=== PATIENT | female | born 1970 | race Caucasian/White ===

== ENCOUNTER → 2019-07-01 | Day surgery (SDC) | payer OTHER ==
[2019-06-29 13:24] VITALS: BMI 31.5
[~2019-07-01] MED LIST: LACTATED RINGERS 1,000 ML IV SCH; LIDOCAINE 1% (10MG/ML) FOR IV START INTRADERMA PRN; LIDOCAINE 1% INJ 10MG/ML (20 ML MDV) ONE; PROPOFOL 10 MG/ML 20 ML VIAL IV ONE
[2019-07-01 10:05] VITALS: RESP 16; TEMP 96.7
--- NOTE | 2019-07-01 10:53 | P.PCN ---
Date of Procedure: 07/01/19 Procedure(s) Performed: BRIEF HISTORY: Patient is a 48-year-old pleasant female scheduled for an elective colonoscopy as a part of screening for colon rectal neoplasia. PROCEDURE PERFORMED: Colonoscopy. PREOPERATIVE DIAGNOSIS: Screening for colon cancer. IV sedation per Anesthesia. PROCEDURE: After informed consent was obtained, the patient, was brought into the endoscopy unit. IV sedation was administered by Anesthesia under continuous monitoring. Digital rectal examination was normal. Initially the Olympus CF-160 flexible video colonoscope was then inserted in the rectum, gradually advanced into the cecum without any difficulty. Careful examination was performed as the scope was gradually being withdrawn. Ileocecal valve and the appendiceal orifice were visualized and appeared normal. Prep was excellent. Mucosa of the cecum, ascending colon, transverse colon, descending colon, sigmoid colon, and rectum appeared normal. Retroflexion was performed in the rectum and no lesions were seen. The patient tolerated the procedure well. IMPRESSION: Normal-appearing colon from rectum to cecum with no evidence of colorectal neoplasia . RECOMMENDATIONS: Findings of this examination were discussed with the patient as well as a family. She was advised to have a repeat screening colonoscopy in 10 years.
[2019-07-01 11:16] VITALS: BP 125/88; PULSE 65
== END ==
LOC: ORWHC2ENDO 09:04
PROVIDERS: ATTEND Internal Medicine Gastroenterology
DX: Z12.11 Encounter for screening for malignant neoplasm of colon (principal); E07.9 Disorder of thyroid, unspecified; F17.210 Nicotine dependence, cigarettes, uncomplicated; M19.90 Unspecified osteoarthritis, unspecified site; Z79.1 Long term (current) use of non-steroidal anti-inflammatories (NSAID); Z79.890 Hormone replacement therapy; Z79.899 Other long term (current) drug therapy
CPT/HCPCS: J2001; J2704; G0121

== ENCOUNTER → 2023-10-11 | Outpatient (CLI) | payer BC ==
[2023-10-11 19:30] LABS: Basophils # (A) 0.04 X 10*3/uL (0.00-0.10); Basophils % (A) 0.7 %; Eosinophils % (A) 3.3 %; HCT 40.7 % (37.2-46.3); HGB 13.4 g/dL (12.0-15.0); Lymphocytes # (A) 1.44 X 10*3/uL (0.90-5.00); Lymphocytes % (A) 23.8 %; MCH 29.1 pg (27.0-32.0); MCHC 32.9 g/dL (32.0-37.0); MCV 88.3 FL (80.0-97.0); Mean Platelet Volume 10.2 FL (9.5-12.2); Monocytes # (A) 0.38 X 10*3/uL (0.20-1.00); Monocytes % (A) 6.3 %; NRBC Per 100 WBC 0 X 10*3/uL (0.00-0.01); Neutrophils # (A) 3.98 X 10*3/uL (1.80-7.70); Neutrophils % (A) 65.7 %; Platelet Count 286 X 10*3/uL (140-440); RBC 4.61 X 10*6/uL (4.10-5.20); RDW 13.8 % (11.5-14.5); WBC 6.05 X 10*3/uL (4.50-10.00)
[2023-10-11 19:42] LABS: INR 0.98 sec (0.93-1.11); Prothrombin Time 10.6 sec (9.9-11.9)
== END | disposition home or self-care (01) ==
LOC: LABPAT 13:19
PROVIDERS: ATTEND Orthopaedic Surgery
DX: Z01.818 Encounter for other preprocedural examination (principal); M17.12 Unilateral primary osteoarthritis, left knee; Z22.322 Carrier or suspected carrier of Methicillin resistant Staphylococcus aureus
CPT/HCPCS: 80048; 85025; 85610; 86850; 86900; 86901; 87070; 93005

== ENCOUNTER 2023-10-21 05:34 | Day surgery (SDC) | payer BC, OTHER ==
[~2023-10-21 05:34] MED LIST changes: -LACTATED RINGERS 1,000 ML IV SCH; -LIDOCAINE 1% (10MG/ML) FOR IV START INTRADERMA PRN; -LIDOCAINE 1% INJ 10MG/ML (20 ML MDV) ONE; -PROPOFOL 10 MG/ML 20 ML VIAL IV ONE; +TRANEXAMIC 1,000 MG/100ML-NACL 1,000 MG in SALINE 1 100ML.BAG IVPB PRN
[2023-10-21] MEDS ORDERED: LIDOCAINE 1% (10MG/ML) FOR IV START INTRADERMA PRN (05:37)
[2023-10-21] MEDS ORDERED: droPERidol 5 MG/2 ML VIAL IVP ONE (05:37)
[2023-10-21] MEDS: LACTATED RINGERS 1,000 ML IV SCH (06:19)
[2023-10-21] MEDS: MELOXICAM 7.5 MG TAB PO PRN (06:20)
[2023-10-21] MEDS: ACETAMINOPHEN TAB 500 MG TAB PO PRN (06:20)
[2023-10-21] MEDS: DEXAMETHASONE SOD PHOSPHATE 4 MG/ML 1 ML VIAL IV ONE (06:22)
[2023-10-21] MEDS: ONDANSETRON 4 MG/2 ML VIAL IVP ONE (06:22)
[2023-10-21] MEDS: LACTATED RINGERS 1,000 ML IV ONE ×2 (06:24→09:08)
--- NOTE | 2023-10-21 06:37 | HP ---
HISTORY AND PHYSICAL ANTICIPATED DATE OF SURGERY: 10/21/2023. HISTORY OF PRESENT ILLNESS: Nadia Silver is a 53-year-old patient, seen with symptomatic left hip osteoarthritis. We discussed options regarding treatment. She elected to proceed with direct anterior left total hip arthroplasty. Consent was obtained. PAST MEDICAL HISTORY: Hypothyroidism. PAST SURGICAL HISTORY: Appendectomy. DAILY MEDICATIONS: 1. Aleve. 2. Celexa. 3. Levothyroxine. 4. Tylenol. ALLERGIES: None. SOCIAL HISTORY: She denies tobacco use. PHYSICAL EVALUATION OF LEFT HIP: She has limited range of motion with severe pain. Positive hip impingement sign. Straight-leg raise negative. Her distal neurovascular exam is intact. IMAGING DATA: Left hip radiographs reveal severe osteoarthritic changes. IMPRESSION: 1. Left hip osteoarthritis. 2. Hypothyroidism. PLAN: Direct anterior approach left total hip arthroplasty. MMROMAIN / SAFIAN: [id number] /
[2023-10-21] MEDS: MIDAZOLAM 2 MG/2 ML VIAL IVP ONE (06:45)
[2023-10-21 07:16] LABS: African American GFR (CKD) >90 (>60 ml/min/1.73 sqM); Anion Gap 5 mmol/L; Blood Urea Nitrogen 10 mg/dL (7-17); Calcium 8.9 mg/dL (8.4-10.2); Carbon Dioxide 25 mmol/L (22-30); Chloride 110 mmol/L (98-107); Glucose 107 mg/dL (74-99); Non-African American GFR(CKD) >90 (>60 ml/min/1.73 sqM); Potassium 4.1 mmol/L (3.5-5.1); Sodium 140 mmol/L (137-145)
[2023-10-21] MEDS ORDERED: ROPIVACAINE 5 MG/ML 30 ML VIAL ONE (07:23)
[2023-10-21] MEDS ORDERED: MIDAZOLAM 2 MG/2 ML VIAL ONE (07:23)
[2023-10-21] MEDS ORDERED: TRANEXAMIC 1,000 MG/100ML-NACL PREMIX BAG ONE (07:23)
[2023-10-21] MEDS ORDERED: LIDOCAINE 1% INJ 10MG/ML (20 ML MDV) ONE (07:23)
[2023-10-21] MEDS ORDERED: GLYCOPYRROLATE 0.2 MG/ML 2 ML VIAL ONE (07:23)
[2023-10-21] MEDS ORDERED: ROCURONIUM 10 MG/ML (5 ML VIAL) IV ONE (07:23)
[2023-10-21] MEDS ORDERED: SUCCINYLCHOLINE CHLORIDE 200 MG/10 ML VIAL IV ONE (07:23)
[2023-10-21] MEDS ORDERED: PROPOFOL 10 MG/ML 20 ML VIAL IV ONE (07:23)
[2023-10-21] MEDS ORDERED: HYDROmorphone (PF) 1 MG/ML ONE (07:23)
[2023-10-21] MEDS ORDERED: fentaNYL (PF) 50 MCG/ML 2 ML AMP ONE (07:23)
[2023-10-21] MEDS ORDERED: DEXAMETHASONE SOD PHOSPHATE 4 MG/ML 1 ML VIAL ONE (07:23)
[2023-10-21] MEDS ORDERED: NEOSTIGMINE 1 MG/ML 10 ML VIAL ONE (07:23)
[2023-10-21] MEDS: ceFAZolin 1,000 MG in SODIUM CHLORIDE 0.9% 1,000 ML IRRIGATION ONE (07:58)
[2023-10-21] MEDS ORDERED: NALOXONE 0.4 MG/ML 1 ML VIAL IV PRN (09:08)
[2023-10-21] MEDS ORDERED: LACTATED RINGERS 1,000 ML IV ONE (09:08)
[2023-10-21] MEDS ORDERED: HYDROmorphone 0.5 MG/0.5 ML SYRINGE IVP PRN ×2 (09:08)
[2023-10-21] MEDS ORDERED: HYDROmorphone 1 MG/ML 1 ML SYRINGE IVP PRN (09:08)
[2023-10-21] MEDS ORDERED: HYDROcodone/APAP 5-325MG 1 EACH TAB PO PRN (09:08)
--- NOTE | 2023-10-21 09:08 | P.OP ---
Date of Procedure: 10/21/23 Preoperative Diagnosis: Left hip osteoarthritis Postoperative Diagnosis: Left hip osteoarthritis Procedure(s) Performed: Direct anterior left total hip arthroplasty Implants: 1. DePuy [place] 135 degree standard collared size 11 press-fit femoral stem 2. De[employer]uy [place] 56 mm press-fit acetabular shell 3. De[employer]uy [place] neutral polyethylene acetabular liner 36 mm ID 56 mm OD 4. Biolox delta ceramic femoral head +1.5 36 mm Anesthesia: GETA, regional (Erector spinae block) Surgeon: Ritesh Gamez Saturator #1: Abdulaziz Roe Estimated Blood Loss (ml): 40 Pathology: none sent Condition: stable Disposition: PACU Indications for Procedure: 53-year-old patient seen with symptomatic left hip osteoarthritis. After having treatment options discussed, she elected to proceed with direct anterior left total hip arthroplasty. Operative Findings: See description of procedure Description of Procedure: The patient was taken to the operative suite. Patient underwent a general anesthetic by the department of anesthesia. Patient was then transferred to the [place] table. Patient was given preoperative IV antibiotics and TXA. Both lower extremities were placed in standard leg spars. The hip was then prepped and draped in the normal sterile orthopedic fashion. A standard anterior incision was made beginning 3 cm lateral and 1 cm distal to the ASIS extending 10 cm. Dissection was then carried down through the subcutaneous soft tissues down to the fascia overlying the tensor fascia salazar. An incision was now made through the fascia. Careful dissection was taken down exposing the tensor fascia salazar muscle. A Cobra retractor was now placed along the medial femoral neck and a second one along the lateral femoral neck. The venous circumflex vessels were now identified, cauterized and clipped. We identified the anterior hip capsule. An incision was made through the hip capsule along the lateral border. I performed a partial anterior capsulectomy. Retractors were now placed around the femoral neck itself. A femoral neck cut was now made with a sagittal saw. It was completed with an osteotome at the lateral neck area. The femoral head was now removed without difficulty. The extremity was now rotated to 60 of external rotation. It was locked in position. Residual labrum was now debrided out. Serial reaming was performed of the acetabulum while Abdulaziz LACEY assisted holding an anterior retractor for exposure. Once we reached the appropriate size and a trial was position and fit nicely. The appropriate size was now chosen opened and made available. It was introduced into the acetabulum without difficulty. The C-arm/fluoroscopy was now brought into the operative field. We made sure we had a true AP pelvic view. We now under direct C- arm/fluoroscopy introduced into the acetabular component with appropriate version and inclination. I held the cup in appropriate position while Abdulaziz LACEY used a mallet to seat the acetabular component. I noted the component now to be well seated and stable. Acetabular cup introduce her was removed. The C-arm was pulled back. An appropriate liner was introduced and clicked into position. It was felt to be stable. At this point retractors were removed. The extremity was now placed into 140 external rotation with no traction. The leg was now dropped to the ground and adducted. Appropriate retractors were now positioned along the proximal femur. We also placed our femoral look into position. Additional capsular releasing was performed to gain access to the proximal femur. We now used a box osteotome. A canal finder was now utilized. Serial broaching was now performed with the assistance of Abdulaziz LACEY tapping the broaches down with a mallet while held the broach in appropriate rotation and position. This was done until we reached the appropriate size with good overall rotational stability. Appropriate calcar planing was performed. A trial head/neck was placed into position. The hip was now reduced. The C- arm/fluoroscopy was brought back into the operative field. I obtained an AP pelvis was demonstrated adequate leg length alignment. The trial components appeared adequately sized and positioned the C-arm/fluoroscopy was pulled back. Retractors were repositioned and the hip was dislocated. The leg was again taken down to the ground and adducted. Appropriate retractors were repositioned as well as the femoral hook. All trial components were removed. The femoral implant was opened along with the femoral head. The femoral implant was intro duced on the appropriate handle into our pre-broached area. I held the component position while Abdulaziz LACEY used a mallet to seat the femoral component. The femoral component was now noted to be well seated and stable.. The femoral head was introduced with good positioning and fixation noted. Retractors were now removed. The hip was now reduced. There appeared be good positioning of the hip confirmed on intraoperative fluoroscopy. Spot films were obtained to document this. A second gram of TXA was given. The deep and superficial soft tissues were infiltrated with local analgesic. Bipolar cautery had been utilized intermittently through the procedure for hemostasis. The wound was irrigated copiously with pulse lavage mechanical irrigation. The fascia was repaired with Vicryl suture. The subcutaneous soft tissues were repaired in layers with Vicryl suture. The skin was approximated with pernio/Dermabond. Sterile dressings were applied. Patient was then awakened, transferred to a bed and taken to recovery in stable condition. Abdulaziz LACEY assisted with the complex procedure.
--- NOTE | 2023-10-21 09:18 | XR ---
EXAMINATION TYPE: XR Hip Limited LT DATE OF EXAM: 10/21/2023 COMPARISON: NONE HISTORY: Left hip replacement TECHNIQUE: 3 view submitted. FINDINGS: There is postsurgical change compatible hip replacement surgery. IMPRESSION: 1. Postoperative change.
--- NOTE | 2023-10-21 09:23 | FL ---
EXAMINATION TYPE: FL guidance operating room DATE OF EXAM: 10/21/2023 HISTORY: Fluoroscopy time Total dose area product (DAP) in uGy*m?, mGy*cm? (or similar): 1.2680 IMPRESSION: 1. Fluoroscopy time.
[2023-10-21 09:31] VITALS: TEMP 97
[2023-10-21] MEDS: HYDROmorphone 0.5 MG/0.5 ML SYRINGE IVP PRN (09:55)
[2023-10-21] MEDS: HYDROcodone/APAP 7.5-325MG 1 EACH TAB PO PRN (11:54)
[2023-10-21 14:27] VITALS: BP 152/85; PULSE 71; RESP 18
--- NOTE | 2023-10-21 20:16 | P.ANPRN ---
Procedure Note - Anesthesia - Nerve Block Performed Left Leander Single Time Out Performed: Yes Date of Procedure: 10/21/23 Procedure Start Time: 06:45 Procedure Stop Time: 06:51 Location of Patient: PreOp Indication: Acute Post-Operative Pain, Requested by Surgeon Sedation Type: Sedate with meaningful contact maintained Preparation: Sterile Prep Position: Supine Needle Types: [place] Needle Gauge: 21 Ultrasound used to visualize needle placement: Yes Ultrasound used to observe medication spread: Yes Blood Aspirated: No Pain Paresthesia on Injection Noted: No Resistance on Injection: Normal Image Stored and Saved: Yes Events: Uneventful and Well Tolerated (Ropivacaine 0.5% 20 cc plus dexamethasone 4 mg)
== END 2023-10-21 14:25 | disposition home health service (06) ==
LOC: OR 05:34
PROVIDERS: ATTEND Orthopaedic Surgery
DX: M16.12 Unilateral primary osteoarthritis, left hip (principal); G89.18 Other acute postprocedural pain; E03.9 Hypothyroidism, unspecified; M79.7 Fibromyalgia; F41.8 Other specified anxiety disorders; Z87.891 Personal history of nicotine dependence; Z79.890 Hormone replacement therapy; Z79.82 Long term (current) use of aspirin; Z79.1 Long term (current) use of non-steroidal anti-inflammatories (NSAID); Z79.899 Other long term (current) drug therapy
CPT/HCPCS: 97530; 97161; 64447; 80048; 73501; 27130; C1776; J2250; J0330; J1100; J2710; J0690 ×2; J2405; J2001; J3010; J1170 ×2; J2795; J2704

== ENCOUNTER → 2023-12-10 | Outpatient (CLI) | payer BC ==
--- NOTE | 2023-12-10 08:43 | XR ---
EXAMINATION TYPE: XR Hip Complete LT DATE OF EXAM: 12/10/2023 8:29 AM CLINICAL INDICATION:Female, 53 years old with history of R52 pain L hip; [facility] COMPARISON: None. TECHNIQUE: XR Hip Complete LT; hip was examined in the frontal and lateral projections FINDINGS: Post arthroplasty changes, hardware is intact, alignment is appropriate. No evidence of fra cture. Postoperative changes of the soft tissues with subcutaneous gas. No evidence of any acute osse ous pathology or joint dislocation. IMPRESSION: Hip arthroplasty with hardware intact and in appropriate alignment. No acute fracture.
== END | disposition home or self-care (01) ==
LOC: RADXRMAIN 08:14
PROVIDERS: ATTEND Orthopaedic Surgery
DX: M25.552 Pain in left hip (principal)
CPT/HCPCS: 73502